=== PATIENT | male | born 1965 | race Caucasian/White ===

== ENCOUNTER → 2021-09-28 | Outpatient (CLI) | payer OTHER ==
[~2021-09-28] MED LIST: ASPIRIN ADULT L81 M1 PO; CIPRO IV400 MG/200 IV; CIPRO500 MG PO; CLARITIN10 M1 PO; DAYPRO600 M1 PO; FLAGYL500 MG PO; GLIPIZIDE XL10 M1 PO; HYDR25T PO; HYDROCODONE BIT1 T11 PO; LISINOPRIL30 MG PO; MEDROL DOSEPAK4 MG PO; METFORMIN1000 MG PO; NEURONTIN100 MG PO; NORVASC10 MG PO; PRILOSEC10 MG PO
== END | disposition home or self-care (01) ==
LOC: MRI 07:32
PROVIDERS: ATTEND Podiatrist Primary Podiatric Medicine
DX: M19.072 Primary osteoarthritis, left ankle and foot (principal); E11.40 Type 2 diabetes mellitus with diabetic neuropathy, unspecified